=== PATIENT | male | born 1985 ===

== ENCOUNTER → 2018-06-11 18:56 | Outpatient (REF) | payer OTHER, SELFPAY ==
[2018-06-11 19:37] LABS: Cholesterol 293 mg/dL (140-199); HDL Cholesterol 81 mg/dL (40-60); LDL Cholesterol Calculated 134 mg/dL (<100); Triglycerides 388 mg/dL (35-150)
== END ==
LOC: LAB 18:56
PROVIDERS: Visit Provider Family Medicine
DX: Z13.6 Encounter for screening for cardiovascular disorders (principal)
CPT/HCPCS: 36415; 80061